=== PATIENT | male | born 1995 | race Caucasian/White ===

== ENCOUNTER 2024-12-29 07:29 | Emergency (ER) | payer SELFPAY ==
[2024-12-29] MEDS: Ketorolac 30 MG/ML SDV IM ONE (08:19)
== END 2024-12-29 11:59 | disposition home or self-care (01) ==
LOC: MW.ED 07:29
DX: M79.604 Pain in right leg (principal); Z88.0 Allergy status to penicillin; Z91.81 History of falling
CPT/HCPCS: 73552; 73590; 73630; 96372; 99283; J1885